=== PATIENT | male | born 1980 | race Caucasian/White ===

== ENCOUNTER 2016-09-14 11:49 | Emergency (ER) | payer SELFPAY ==
[~2016-09-14] VITALS: Ht 170.2 cm; Wt 65.9 kg
[~2016-09-14 11:49] MED LIST: ACETAMINOPHEN W1 TA6 PO; AMOXICILLIN 50500 MG PO; BACITRACIN500 U/G2 TP; CEPHALEXIN500 M1 PO; CLINDAMYCIN150 MG PO; FLEXERIL 1010 MG/TAB PO; LORTAB 5/500 501 TAB PO; METRONIDAZOLE500 MG PO; MILLIPRED DP5 MG PO; NAPROXEN EC500 MG PO; NO HOME MEDICATIONS; NORCO 325 MG-51 TAB PO; NORCO 325 MG-7.1 TAB PO; PEN-VEE K500 MG PO; PENICILLIN V250 MG PO; PENICILLIN V500 MG PO; PENICILLIN250 MG PO; PERCOCET 325 MG1 TA2 PO; PERCOCET 500 MG1 TAB PO; PERIDEX (CHLOR480 ML MM; PHENERGAN 25 TA25 MG PO; ULTRAM 50MG TAB50 MG PO; ULTRAM50 MG PO; VICODIN 5/5001 UDTAB PO; ZOFRAN 4MG T4 MG/TAB PO; ZOFRAN4 M1 PO; [UNRECOGNIZED DRUG - OTHER]; [UNRECOGNIZED DRUG - REMARK]
[2016-09-14 11:51] VITALS: TEMP 97.2
[2016-09-14] MEDS ORDERED: NORCO 325 MG-51 TAB PO (12:51)
[2016-09-14 13:09] VITALS: BP 131/89; PULSE 72
== END 2016-09-14 13:10 | disposition home or self-care (01) ==
LOC: COL.ER 11:49
DX: S42.021A Displaced fracture of shaft of right clavicle, initial encounter for closed fracture (principal); F17.210 Nicotine dependence, cigarettes, uncomplicated; Y04.0XXA Assault by unarmed brawl or fight, initial encounter
CPT/HCPCS: J2270; J2405

== ENCOUNTER 2017-03-20 20:46 | Emergency (ER) | payer SELFPAY ==
[~2017-03-20] VITALS: Ht 170.2 cm; Wt 70.5 kg
[2017-03-20 20:52] VITALS: TEMP 98.8
[2017-03-20 21:32] LABS: INFLUENZA A NEGATIVE; INFLUENZA B NEGATIVE
[2017-03-20 22:33] LABS: BASO % 0.2 % (0.0-2.0); EOS # 0.1 (0.0-0.7); EOS % 1.3 % (0-4.0); GRAN # 3.3 (1.4-6.5); GRAN % 54.4 % (42.2-75.2); HEMATOCRIT 46.1 % (42.0-52.0); HEMOGLOBIN 15.9 g/dl (13.5-18.0); LYMPH # 1.6 (1.2-3.4); LYMPH % 27.2 % (20.0-51.0); MEAN CELL VOLUME 95 fl (80.0-100.0); MEAN CORPUSCULAR HEMOGLOBIN 33 pg (27.0-31.0); MEAN CORPUSCULAR HGB CONC 35 g/dl (33.0-37.0); MONO % 16.6 % (1.7-9.3); PLATELET COUNT 162 K/mm3 (130-400); RED BLOOD COUNT 4.84 M/mm3 (4.20-5.60); REDCELL DISTRIBUTION WIDTH-CV 12.8 % (11.5-14.5)
[2017-03-20 22:43] LABS: ALBUMIN 4.5 gm/dL (3.5-5.0); BILIRUBIN,TOTAL 0.6 mg/dL (0.0-1.0); CALCIUM 9.2 mg/dL (8.4-10.2); CREATININE, serum 0.82 mg/dL (0.66-1.25); POTASSIUM 3.7 mmol/L (3.4-5.0); TOTAL PROTEIN 7.5 gm/dL (6.4-8.2)
[2017-03-21 00:04] VITALS: BP 137/85; PULSE 90
== END 2017-03-21 00:06 | disposition home or self-care (01) ==
LOC: COL.ER 20:46
PROVIDERS: Emergency Medicine; Nurse Practitioner
DX: J06.9 Acute upper respiratory infection, unspecified (principal); R19.7 Diarrhea, unspecified; R11.10 Vomiting, unspecified; F17.210 Nicotine dependence, cigarettes, uncomplicated
CPT/HCPCS: J2405; J7030

== ENCOUNTER 2017-08-15 08:45 | Emergency (ER) | payer SELFPAY ==
[~2017-08-15] VITALS: Ht 175.3 cm; Wt 72.7 kg
[2017-08-15 08:49] VITALS: TEMP 97.5
[2017-08-15 09:15] LABS: BASO # 0.1 (0.0-0.2); BASO % 0.7 % (0.0-2.0); EOS # 0.3 (0.0-0.7); EOS % 3.4 % (0-4.0); GRAN # 4.1 (1.4-6.5); GRAN % 45.2 % (42.2-75.2); HEMATOCRIT 49.4 % (42.0-52.0); LYMPH # 3.7 (1.2-3.4); LYMPH % 40.8 % (20.0-51.0); MEAN CELL VOLUME 98 fl (80.0-100.0); MEAN CORPUSCULAR HEMOGLOBIN 34 pg (27.0-31.0); MEAN CORPUSCULAR HGB CONC 34 g/dl (33.0-37.0); MEAN PLATELET VOLUME 8.8 fl (7.4-10.4); MONO # 0.9 (0.1-0.6); MONO % 9.7 % (1.7-9.3); PLATELET COUNT 265 K/mm3 (130-400); RED BLOOD COUNT 5.06 M/mm3 (4.20-5.60); REDCELL DISTRIBUTION WIDTH-CV 12.2 % (11.5-14.5)
[2017-08-15 09:23] LABS: COLLECTION METHOD CLEAN CATCH
[2017-08-15 09:23] LABS: CALCIUM 9.9 mg/dL (8.4-10.2); CREATININE, serum 1.02 mg/dL (0.66-1.25)
[2017-08-15 09:36] LABS: MUCOUS Present /lpf; PH 5 (5-8); SQUAMOUS EPITHELIAL 0-2 /hpf; URINE APPEARANCE Hazy; URINE BACTERIA Rare /hpf; URINE BILIRUBIN Negative (NEGATIVE); URINE BLOOD 1+ (NEGATIVE); URINE COLOR Yellow; URINE GLUCOSE Negative (NEGATIVE); URINE KETONE Negative (NEGATIVE); URINE LEUKOCYTE ESTERASE Trace (NEGATIVE); URINE NITRATE Negative (NEGATIVE); URINE PROTEIN(semi-quant) 1+ (NEGATIVE)
[2017-08-15] MEDS ORDERED: PHENERGAN 25 TA25 MG PO (12:30)
[2017-08-15] MEDS ORDERED: NORCO 325 MG-51 TAB PO (12:30)
[2017-08-15] MEDS ORDERED: OMNICEF 300MG300 MG PO (12:35)
[2017-08-15 13:54] VITALS: BP 168/100; PULSE 90
== END 2017-08-15 12:50 | disposition home or self-care (01) ==
LOC: COL.ER 08:45
PROVIDERS: Physician Assistant
DX: N20.1 Calculus of ureter (principal); F17.210 Nicotine dependence, cigarettes, uncomplicated
CPT/HCPCS: J0696; J0780; J1170; J2405; J3010; J7030

== ENCOUNTER 2019-03-16 10:55 | Emergency (ER) | payer SELFPAY ==
[~2019-03-16] VITALS: Ht 175.3 cm; Wt 87.3 kg
[~2019-03-16 10:55] MED LIST changes: +OMNICEF 300MG300 MG PO
[2019-03-16 11:11] VITALS: BP 159/109; TEMP 97.4
[2019-03-16] MEDS ORDERED: AMOXICILLIN875 MG PO (15:09)
[2019-03-16] MEDS ORDERED: NORCO 325 MG-51 TAB PO (15:09)
[2019-03-16 15:39] VITALS: PULSE 88
== END 2019-03-16 15:40 | disposition home or self-care (01) ==
LOC: COL.ER 10:55
DX: K02.9 Dental caries, unspecified (principal); K04.7 Periapical abscess without sinus; F17.210 Nicotine dependence, cigarettes, uncomplicated

== ENCOUNTER 2021-03-13 00:05 | Emergency (ER) | payer SELFPAY ==
[~2021-03-13] VITALS: Ht 175.3 cm; Wt 72.7 kg
[~2021-03-13 00:05] MED LIST changes: +AMOXICILLIN875 MG PO
[2021-03-13 00:09] VITALS: TEMP 98
[2021-03-13] MEDS ORDERED: NORCO 325 MG-51 TAB PO (00:48)
[2021-03-13 01:00] VITALS: BP 126/78; PULSE 76
== END 2021-03-13 01:00 | disposition home or self-care (01) ==
LOC: COL.ER 00:05
DX: S69.91XA Unspecified injury of right wrist, hand and finger(s), initial encounter (principal); F17.210 Nicotine dependence, cigarettes, uncomplicated; W00.0XXA Fall on same level due to ice and snow, initial encounter